=== PATIENT | male | born 1980 | race Caucasian/White ===

== ENCOUNTER 2017-05-01 06:43 | Emergency (ER) | payer OTHER ==
--- NOTE | ~2017-05-01 | CT2 ---
[facility] A Service of [facility] RADIOLOGY TEXT RESULTS PATIENT: ROGERIO GROSSMAN LOCATION: [facility] : [birth year] UNIT #: [id number] AGE: [address]: Hodan Hernandez APRN SEX: M ORDER DR: [id number] [facility] [address] [place], [place] [address] [id number] MR#: [id number] Acc #: [id number] NAME: ROGERIO GROSSMAN : 1980 SEX: M STUDY DATE/TIME: 05/01/2017 0926 UNIT: [facility] ROOM: STUDY DESCRIPTION: CT Abd and Pelv W Cont Attending Physician: Hodan Hernandez A.P.R.N. Ordering Physician: Ed Bj Benz M.D. Primary Care Physician: No Primary Care Physician MEDICAL IMAGING REPORT This report is preliminary unless electronic signature is present EXAM CT abdomen and pelvis with contrast, 05/01/2017 at 0926 hours. CLINICAL HISTORY 36-year-old man with complaint of right lower quadrant abdominal pain with nausea and vomiting and diarrhea since 04/30/2017. COMPARISON 11/07/[address] images were obtained from the lung bases through the pubic symphysis with intravenous contrast only. Sagittal and coronal reconstructions were performed. Total exam DLP 1207 mGy-cm. This CT exam was performed with one or more of the following radiation dose reduction techniques: automatic exposure control, adjustment of mA and/or kV according to patient size, and iterative reconstruction. FINDINGS Images through the lung bases are clear. There is questionable mild circumferential thickening of the distal esophagus which could represent mild esophagitis. The images through the abdomen demonstrate mild fatty change in the liver with no focal liver lesion. The spleen, pancreas, gallbladder, bile ducts, and adrenal glands are normal. Kidneys are remarkable for a punctate nonobstructing stone in the lateral mid-right kidney similar to prior exam. No definite left renal stones. No ureteral stones or dilatation of the ureters. The abdominal aorta is normal in caliber. There is no adenopathy or ascites. The unopacified stomach is very contracted but appears normal. There is STS. [facility] A Service of [facility] RADIOLOGY TEXT RESULTS PATIENT: ROGERIO GROSSMAN LOCATION: [facility] : [birth year] UNIT #: [id number] AGE: [address]: Hodan Hernandez APRN SEX: M ORDER DR: no small bowel distension or small bowel wall thickening. The appendix is normal. There is no colonic distension or definite colonic wall thickening. CT pelvis is negative. There are surgical clips in the left inguinal region likely from prior hernia repair. There is perhaps a very small fat density right inguinal hernia. There is no bowel involvement. The bones are unremarkable. IMPRESSION 1. Punctate nonobstructing right intrarenal calculus unchanged from 11/07/2013. No ureteral calculi. 2. Question mild circumferential wall thickening of the distal esophagus which could indicate underlying inflammation. 3. The stomach, small bowel, colon, and appendix appear normal. Dictated by... Larissa Chapman M.D. THIS IS AN ELECTRONICALLY VERIFIED REPORT Larissa Chapman M.D. at 05/01/2017 6:05 PM GABE/john TD: 05/01/2017 17:08 JOB #: [id number] MEDICAL IMAGING REPORT Page 1 of 1 COPY
[2017-05-01 07:52] LABS: BASOPHIL% 0.3 % (0-2.5); EOSINOPHIL% 0.7 % (0.0-7.0); HEMATOCRIT 49.4 % (38.0-50.0); HEMOGLOBIN 16.7 gm/dL (13.0-16.0); LYMPHOCYTE# 1.3 X10e3 (1.0-3.5); LYMPHOCYTE% 18.8 % (17.0-45.0); MEAN CELL VOLUME 94.5 FL (83-96); MEAN CORPUSCULAR HGB CONC 33.9 g/dL (30-36); MEAN PLATELET VOLUME 12.4 FL (6.5-11.5); MONOCYTE# 0.4 X10e3 (0-1.0); MONOCYTE% 5.6 % (3.0-12.0); NEUTROPHIL# 5.1 X10e3 (1.5-7.1); NEUTROPHIL% 74.6 % (40-75); RED BLOOD COUNT 5.23 X10e (3.90-5.60); RED CELL DISTRIBUTION WIDTH 12.6 % (11.0-15.5); WHITE BLOOD COUNT 6.8 X10e3 (4.0-10.5)
[2017-05-01 07:53] LABS: URINE SOURCE CLEAN CATCH
[2017-05-01 07:59] LABS: URINE APPEARANCE CLEAR; URINE BILIRUBIN NEG (NEG); URINE BLOOD NEG (NEG); URINE COLOR YELLOW; URINE GLUCOSE NEG (NEG); URINE KETONE NEG (NEG); URINE LEUKOCYTE ESTERASE NEG (NEG); URINE NITRATE NEG (NEG); URINE PH 8.5 (5-8); URINE PROTEIN NEG (NEG); URINE SPECIFIC GRAVITY 1.011 (1.003-1.035); URINE UROBILINOGEN 0.2 MG/DL (NEG)
[2017-05-01 08:04] LABS: CULTURE INDICATED? NO
[2017-05-01 08:12] LABS: ALBUMIN SERUM 4.6 g/dL (3.5-5.0); BILIRUBIN, DIRECT 0.2 mg/dL (0.0-0.2); BILIRUBIN,INDIRECT 1.2 mg/dL (0.0-0.9); BILIRUBIN,TOTAL 1.4 mg/dL (0.2-2.0); CALCIUM SERUM 9.3 mg/dL (8.4-10.2); CREATININE SERUM 0.9 mg/dL (0.6-1.4); GLOM FILT RATE Estimated 108.7 mL/min (>60); POTASSIUM 3.7 mmol/L (3.5-5.1); PROTEIN TOTAL SERUM 7.4 g/dL (6.0-8.3)
[2017-05-01 08:16] LABS: DIFF IND NO; PLATELET COUNT 127 X10e3 (140-420)
[2017-05-04] MEDS ORDERED: HYDROCODON-ACE1 EAC7 PO (08:33)
[2017-05-04] MEDS ORDERED: BENTYL20 MG PO (08:34)
[2017-05-04] MEDS ORDERED: OMEPRAZOLE40 M1 PO (08:34)
[2017-05-04] MEDS ORDERED: PHENERGAN25 M1 DOB (08:34)
== END 2017-05-01 12:12 | disposition home or self-care (01) ==
LOC: CED 06:43
PROVIDERS: Nurse Practitioner
DX: R10.84 Generalized abdominal pain (principal); R11.2 Nausea with vomiting, unspecified; R19.7 Diarrhea, unspecified; Z88.1 Allergy status to other antibiotic agents; Z88.0 Allergy status to penicillin; K21.9 Gastro-esophageal reflux disease without esophagitis
CPT/HCPCS: 36415; 74177; 80048; 80076; 81003; 83690; 85025; 96361; 96374; 96375; 99284; J2270; J2405; Q9967

== ENCOUNTER → 2017-05-04 | Day surgery (SDC) | payer OTHER ==
[~2017-05-04] MED LIST: BENTYL20 MG PO; HYDROCODON-ACE1 EAC7 PO; OMEPRAZOLE40 M1 PO; PHENERGAN25 M1 DOB
--- NOTE | ~2017-05-04 | OR ---
Unit #: [id number] #: [id number] Patient: ROGERIO GROSSMAN [id number] [address] [address] [id number] O MR#: [id number] NAME: ROGERIO GROSSMAN ROOM: Date of Procedure: 05/04/2017 Admission Date: 05/04/2017 Surgeon: Phan Mayes M.D. : 1980 Attending Physician: Phan Mayes M.D. Primary Care Physician: Generic Doctor Not In System OPERATIVE REPORT PROCEDURE PERFORMED Esophagogastroduodenoscopy with biopsy. INDICATIONS FOR PROCEDURE Right upper quadrant pain, abnormal CT scan showing thickening in the esophageal wall, undergoing evaluation with upper endoscopy. MEDICATIONS Monitored anesthesia. POSTOPERATIVE FINDINGS 1. Mild esophagitis along with hiatal hernia. 2. Gastritis with multiple erosions. Biopsies taken. 3. Normal duodenum and distal duodenum. PLAN PPI with symptomatic treatment for now. Follow up on the pathology report. DESCRIPTION OF PROCEDURE The patient was explained of the procedure, risks, and benefits along with risks and benefits of anesthesia. He was brought to the endoscopy room. Propofol anesthesia was given. Bite block was placed. The scope was passed down the mouth into esophagus, stomach, duodenum, and distal duodenum. Findings as described. Biopsies taken. Gently, I pulled it out of the patient's mouth. He tolerated it well. No major complications were seen. Dictated by... Samantha Woods/sudhakar TD: 05/05/2017 02:18 JOB #: [id number] Unit #: [id number] #: [id number] Patient: ROGERIO GROSSMAN OPERATIVE REPORT Page 1 of 1 X Phan Mayes MD X PROCEDURE OPERATIVE NOTE
[2017-05-04 11:19] LABS: BASOPHIL% 0.5 % (0-2.5); EOSINOPHIL% 0.8 % (0.0-7.0); HEMATOCRIT 46.3 % (38.0-50.0); HEMOGLOBIN 15.9 gm/dL (13.0-16.0); LYMPHOCYTE# 1.2 X10e3 (1.0-3.5); LYMPHOCYTE% 21.3 % (17.0-45.0); MEAN CELL VOLUME 93.1 FL (83-96); MEAN CORPUSCULAR HGB CONC 34.4 g/dL (30-36); MEAN PLATELET VOLUME 11.6 FL (6.5-11.5); MONOCYTE# 0.3 X10e3 (0-1.0); MONOCYTE% 5.8 % (3.0-12.0); NEUTROPHIL# 3.9 X10e3 (1.5-7.1); NEUTROPHIL% 71.6 % (40-75); PLATELET COUNT 117 X10e3 (140-420); RED BLOOD COUNT 4.97 X10e (3.90-5.60); RED CELL DISTRIBUTION WIDTH 12.3 % (11.0-15.5); WHITE BLOOD COUNT 5.5 X10e3 (4.0-10.5)
[2017-05-04 11:21] LABS: DIFF IND NO
[2017-05-04 12:01] LABS: ALBUMIN SERUM 4.1 g/dL (3.5-5.0); BILIRUBIN,TOTAL 2.1 mg/dL (0.2-2.0); BUN/CREATININE RATIO 23.33; CALCIUM SERUM 8.8 mg/dL (8.4-10.2); CREATININE SERUM 0.9 mg/dL (0.6-1.4); POTASSIUM 3.9 mmol/L (3.5-5.1); PROTEIN TOTAL SERUM 6.9 g/dL (6.0-8.3)
== END | disposition home or self-care (01) ==
LOC: COPS 07:07
PROVIDERS: Internal Medicine
DX: K29.50 Unspecified chronic gastritis without bleeding (principal); K44.9 Diaphragmatic hernia without obstruction or gangrene; K21.0 Gastro-esophageal reflux disease with esophagitis; K58.9 Irritable bowel syndrome, unspecified
CPT/HCPCS: 80053; 82150; 83690; 85025; 88305; 88312; J2250; J2405